=== PATIENT | male | born 1975 | race Caucasian/White ===

== ENCOUNTER 2018-11-24 12:35 | Emergency (ER) | payer OTHER ==
[~2018-11-24 12:35] MED LIST: ASPIR LOW81 MG PO; COLACE100 MG PO; GUAIFENESIN W PO; KLOR-CON M1010 MEQ PO; LANTUS SOLOS100 U/M1 SQ; LASIX20 MG PO; LIPI20 PO; LOSARTAN POTAS100 M1 PO; METFORMIN HCL1000 MG PO; METOPROLOL TART25 M1 PO; NORCO1 TA2 PO; NOVOLOG100 U/ML SC; POTASSIUM CHLO10 MEQ PO
[2018-11-24 14:02] VITALS: BP 148/94
== END 2018-11-24 14:02 | disposition home or self-care (01) ==
LOC: ED 12:35
DX: H60.92 Unspecified otitis externa, left ear (principal); I10 Essential (primary) hypertension; E11.9 Type 2 diabetes mellitus without complications

== ENCOUNTER 2019-06-10 18:03 | Emergency (ER) | payer OTHER ==
[~2019-06-10] VITALS: Ht 165.1 cm; Wt 93.9 kg
[2019-06-10 18:12] VITALS: Ht 165.1 cm; Wt 93.9 kg
[2019-06-10 18:45] VITALS: BP 145/98
== END 2019-06-10 18:45 | disposition home or self-care (01) ==
LOC: ED 18:03
DX: T82.9XXA Unspecified complication of cardiac and vascular prosthetic device, implant and graft, initial encounter (principal); E11.22 Type 2 diabetes mellitus with diabetic chronic kidney disease; I12.0 Hypertensive chronic kidney disease with stage 5 chronic kidney disease or end stage renal disease; N18.6 End stage renal disease; Z99.2 Dependence on renal dialysis